=== PATIENT | male | born 1965 | race Caucasian/White ===

== ENCOUNTER 2018-11-24 23:04 | Emergency (ER) | payer OTHER ==
[~2018-11-24] VITALS: Ht 172.7 cm; Wt 85.5 kg
[~2018-11-24 23:04] MED LIST: NO MEDS
[2018-11-24 23:10] VITALS: Ht 172.7 cm; Wt 85.5 kg
[2018-11-24] MEDS ORDERED: DIPHENHYDRAMINE 50 MG INJ IV STA (23:17)
[2018-11-24] MEDS ORDERED: ALBUTEROL 0.083% (NEB) 2.5 MG/3 ML AMP INH STA (23:17)
[2018-11-24] MEDS ORDERED: METHYLPREDNISOLONE 125 MG INJ IV STA (23:17)
[2018-11-24] MEDS ORDERED: EPINEPHrine 1 MG INJ IM STA (23:17)
[2018-11-24] MEDS ORDERED: FAMOTIDINE 20 MG INJ IV STA (23:17)
[2018-11-24] MEDS ORDERED: IPRATROPIUM (NEB) 0.5 MG/2.5 ML AMP INH STA (23:17)
[2018-11-24] MEDS ORDERED: DIPHENHYDRAMINE 50 MG INJ ONE (23:20)
[2018-11-24] MEDS ORDERED: EPINEPHrine 1 MG INJ ONE (23:20)
[2018-11-25] MEDS ORDERED: BEN50 PO (01:52)
[2018-11-25] MEDS ORDERED: PRED20TA PO (01:52)
[2018-11-25] MEDS ORDERED: RANI150T35 PO (01:52)
--- NOTE | 2018-11-25 02:01 | ERD ---
ER Documentation Chief Complaint Chief Complaint possible allergic rxn after drinking soy milk x 30 min ago c/o sob/headache HPI Is a 53-year-old male with possible allergic reaction so I am a 30 minutes ago. Complains of full body itchiness along with mild tongue swelling. Denies any fevers or chills. Denies any difficulty tolerating secretions. Denies any shortness of breath. ROS All systems reviewed and are negative except as per history of present illness. Medications Home Meds Active Scripts Ranitidine Hcl* (Zantac*) 150 Mg Tablet, 150 MG PO BID PRN for EPIGASTRIC PAIN, #30 TAB Prov:TRANG AGUILERA 11/25/18 Prednisone* (Prednisone*) 20 Mg Tab, 60 MG PO DAILY for 5 Days, TAB Prov:TRANG AGUILERA 11/25/18 Diphenhydramine Hcl* (Benadryl*) 50 Mg Cap, 50 MG PO Q6H PRN for ITCHING/RASH, #30 CAP Prov:TRANG AGUILERA 11/25/18 Reported Medications [No Meds] No Conflict Check 08/03/15 Allergies Allergies: Coded Allergies: No Known Allergy (Unverified , 08/03/15) PMhx/Soc History of Surgery: No Anesthesia Reaction: No Hx Neurological Disorder: No Hx Respiratory Disorders: No Hx Cardiac Disorders: No Hx Psychiatric Problems: No Hx Miscellaneous Medical Probl: No Hx Alcohol Use: No Hx Substance Use: No Hx Tobacco Use: No Physical Exam Vitals Vital Signs Date Temp Pulse Resp B/P (MAP) Pulse Ox O2 O2 Flow FiO2 Time Delivery Rate 11/24/18 112 24 100 Nasal 5.0 23:29 Cannula 11/24/18 97.7 93 24 143/92 93 23:10 (109) Physical Exam Const: No acute distress Head: Atraumatic Eyes: Normal Conjunctiva ENT: Normal External Ears, Nose and Mouth. Neck: Full range of motion. No meningismus. Resp: Clear to auscultation bilaterally Cardio: Regular rate and rhythm, no murmurs Abd: Soft, non tender, non distended. Normal bowel sounds Skin: Scattered hives noted throughout the upper and lower body Back: No midline or flank tenderness Ext: No cyanosis, or edema Neur: Awake and alert Psych: Normal Mood and Affect Results 24 hrs Current Medications Medications Dose Sig/Arlette Start Time Status Last (Trade) Ordered Route PRN Stop Time Admin Dose Reason Admin 50 mg ONCE STAT 11/24/18 DC 11/24/18 Diphenhydrami IV 23:17 23:22 ne HCl 11/24/18 23:18 (Benadryl) Epinephrine 0.3 mg ONCE STAT 11/24/18 DC 11/24/18 IM 23:17 23:22 (EPINEPHrine) 11/24/18 23:18 Famotidine 20 mg ONCE STAT 11/24/18 DC 11/24/18 (Pepcid Iv) IV 23:17 23:30 11/24/18 23:18 125 mg ONCE STAT 11/24/18 DC 11/24/18 Methylprednis IV 23:17 23:30 olone Sodium 11/24/18 23:18 Succinate (Solu-Medrol) Albuterol 5 mg ONCE STAT 11/24/18 DC 11/24/18 (Proventil INH 23:17 23:29 0.083% (Neb)) 11/24/18 23:18 Ipratropium 0.5 mg ONCE STAT 11/24/18 DC 11/24/18 Alden INH 23:17 23:29 (Atrovent 11/24/18 23:18 0.02% (Neb)) Procedures/MDM Medical decision making: Is a 53-year-old male has what looks to be severe allergic reaction but is been treated with steroids Zantac and Benadryl here along with IV fluids. At this point is stable for trial of outpatient management. Is been observed for 4 hours. He said no recurrence. Patient will be discharged home with prednisone, Benadryl, Zantac. Is been asked to follow- up with her primary care physician to which he agrees. Return immediately via 02 06 for any return of symptoms. Departure Diagnosis: Primary Impression: Allergic reaction Encounter type: initial encounter Qualified Codes: T78.40XA - Allergy, unspecified, initial encounter Condition: Stable Patient Instructions: Allergic Reaction, Other (General) TRANG AGUILERA Nov 25, 2018 02:01
[2018-11-25 02:05] VITALS: BP 130/84; PULSE 105; RESP 16
== END 2018-11-25 02:31 | disposition home or self-care (01) ==
LOC: E/R 23:04
DX: Z91.011 Allergy to milk products (principal); R06.02 Shortness of breath
CPT/HCPCS: 71045; 94664; 96372; 96374; 96375; J0171; J1200; J2930; Z7502; Z7610